=== PATIENT | male | born 1960 | race African-American/Black ===

== ENCOUNTER → 2019-09-06 | Outpatient (CLI) | payer BC, OTHER ==
--- NOTE | 2019-09-06 12:46 | RAD ---
CHEST PA LATERAL History: Chest pain and weight loss Comparison: None. Findings: Frontal and lateral views of the chest were obtained. The cardiomediastinal silhouette is normal. Pulmonary vasculature is normal. The lungs are clear. No pleural effusion or pneumothorax is seen. There is no acute bone abnormality. IMPRESSION: No acute cardiopulmonary process. Electronically signed by: Dom Person MD (09/06/2019 12:43 PM) [id number]
== END | disposition home or self-care (01) ==
LOC: DXRAD 12:02
PROVIDERS: ATTEND Family Medicine
DX: R63.4 Abnormal weight loss (principal); R07.9 Chest pain, unspecified
CPT/HCPCS: 71046

== ENCOUNTER → 2021-01-25 | Outpatient (CLI) | payer SELFPAY ==
--- NOTE | 2021-01-25 10:30 | RAD ---
EXAM: Head CT without contrast. HISTORY: Headache. TECHNIQUE: Computed tomographic images of the head were obtained without contrast. *One or more of the following individualized dose reduction techniques were utilized for this examina tion: 1. Automated exposure control. 2. Adjustment of the mA and/or kV according to patient size. 3. Use of iterative reconstruction technique. COMPARISON: 02/12/2015. FINDINGS: There is no acute or subacute extra-axial or intraparenchymal hemorrhage. There is no mass effect or midline shift. There is no hydrocephalus. There is a stable prominent cortical vessel along the lateral right frontal lobe. The nearly 6 year c ourse of stability favors a benign physiologic etiology. No mass is seen in this location. The herrera-w douglas matter differential pattern is intact. The visualized portions of the orbits, paranasal sinuses and mastoid air cells are unremarkable. No s uspicious calvarial lesion is seen. IMPRESSION: No acute intracranial findings. Electronically signed by: Lou Gilmore MD (01/25/2021 10:28 AM) [facility]
--- NOTE | 2021-01-25 14:41 | RAD ---
XR CHEST 2V INDICATION: INTERCOSTAL PAIN COMPARISON STUDY: 09/06/1999 1020. FINDINGS: Lungs: Normal lung volume. No pulmonary mass or consolidation. The tracheobronchial tree and hilar st ructures are normal. Pleura: No pleural effusion or pneumothorax. Heart and Mediastinum: The cardiomediastinal silhouette is normal. The great vessels of the thorax ar e normal. Bones and Soft Tissues: The bones and soft tissues are within normal limits. IMPRESSION: No acute cardiopulmonary process. Electronically signed by: Seun Villagomez MD (01/25/2021 2:39 PM) [id number]
== END ==
LOC: RAD 10:09
PROVIDERS: ATTEND Family Medicine
DX: G44.52 New daily persistent headache (NDPH) (principal); R07.82 Intercostal pain
CPT/HCPCS: 70450; 71046